=== PATIENT | male | born 1990 | race African-American/Black ===

== ENCOUNTER 2018-02-14 15:30 | Emergency (ER) | payer OTHER ==
[~2018-02-14] VITALS: Ht 172.7 cm; Wt 64.5 kg
[2018-02-14] MEDS ORDERED: KETOROLAC TROMETHAMINE 60 MG/2 ML VIAL IM ONE (18:30)
[2018-02-14 18:56] VITALS: BP 153/87
== END 2018-02-14 20:08 | disposition home or self-care (01) ==
LOC: EMS 15:31
DX: J40 Bronchitis, not specified as acute or chronic (principal); F17.210 Nicotine dependence, cigarettes, uncomplicated
CPT/HCPCS: 71046; 96372; 99284; 99406; J1885